=== PATIENT | female | born 1980 | race Caucasian/White ===

== ENCOUNTER 2016-07-23 02:49 | Emergency (ER) | payer OTHER ==
[~2016-07-23] VITALS: Ht 152.4 cm; Wt 59.0 kg
[2016-07-23 03:00] VITALS: BP 130/96; PULSE 85; RESP 16; TEMP 98.4; O2SAT 98
--- NOTE | 2016-07-23 03:20 | NUR ---
Placed in room 03 . Placed on air sampling and monitoring, blood pressure machine and pulse oximeter. To gown for exam. Side rails up. Care assumed.
--- NOTE | 2016-07-23 03:20 | NUR ---
Patient AAO x4, sitting in bed c/o rash to left hip that dull and "achey" with pain /. Patient stated, "I think I have shingles. I may have been exposed during the job." Patient denies N/V/D. No acute distress noted. Will continue to monitor patient.
--- NOTE | 2016-07-23 03:21 | NUR ---
Rash also present to back of patient's knees and lumbar area of the spine. aware.
--- NOTE | 2016-07-23 03:39 | NUR ---
ER at bedside examining patient.
[2016-07-23] MEDS ORDERED: valACYclovir HCL 500 MG TABLET PO ONE (03:45)
[2016-07-23] MEDS ORDERED: IBUPROFEN 600 MG TABLET PO ONE (03:45)
[2016-07-23] MEDS ORDERED: ACYCLOVIR 400 MG TABLET PO ONE (04:00)
[2016-07-23] MEDS ORDERED: ACYCLOVIR 400 MG TABLET ONE (04:08)
[2016-07-23 04:16] VITALS: BP 125/85; PULSE 82; RESP 16; TEMP 98.4; O2SAT 98
--- NOTE | 2016-07-23 04:16 | NUR ---
Patient given written and verbal discharge instructions and verbalizes understanding. ER MD discussed with patient the results and treatment provided. Patient in stable condition. ID arm band removed. Rx of acyclovir and ibuprofen given. Patient educated on pain management and to follow up with PMD. Pain Scale 0/10. Opportunity for questions provided and answered.
== END 2016-07-23 04:16 | disposition home or self-care (01) ==
LOC: SED 02:49 → EEVIPCON 02:49 → SED 04:16
DX: R23.8 Other skin changes (principal)
CPT/HCPCS: 99283

== ENCOUNTER 2016-07-30 13:38 | Emergency (ER) | payer OTHER ==
[~2016-07-30] VITALS: Ht 160 cm; Wt 59.0 kg
[2016-07-30 13:50] VITALS: BP 139/80; PULSE 87; RESP 15; TEMP 97; O2SAT 97
--- NOTE | 2016-07-30 13:50 | NUR ---
PLACED IN ROOM 2 REPORT GIVEN TO CHEO
--- NOTE | 2016-07-30 14:05 | NUR ---
DR IRVIN IN ROOM FOR EXAM
[2016-07-30 14:19] VITALS: PULSE 76; RESP 18
--- NOTE | 2016-07-30 14:21 | NUR ---
Patient given written and verbal discharge instructions and verbalizes understanding. ER MD discussed with patient the results and treatment provided. Given copies of tests performed in ER. Patient in stable condition. Patient educated on pain management and to follow up with PMD. Pain Scale [0]. Opportunity for questions provided and answered.
== END 2016-07-30 14:19 | disposition home or self-care (01) ==
LOC: SED 13:38
DX: Z00.8 Encounter for other general examination (principal)
CPT/HCPCS: 99281

== ENCOUNTER 2016-08-27 08:22 | Outpatient (CLI) | payer OTHER ==
[2016-08-27 09:30] LABS: BASOPHILS # (AUTO) 0.1 K/uL (0.0-0.2); BASOPHILS % (AUTO) 0.7 % (0.0-2.0); EOSINOPHILS # (AUTO) 0.1 K/uL (0.0-0.4); EOSINOPHILS % (AUTO) 1.3 % (0.0-4.0); HEMATOCRIT 36.7 % (36-48); HEMOGLOBIN 12.4 g/dL (12.0-16.0); LYMPHOCYTES # (AUTO) 3.1 K/uL (1.0-5.5); LYMPHOCYTES % (AUTO) 32.3 % (20.5-51.5); MEAN CORPUSCULAR HEMOGLOBIN 31 pg (27-31); MEAN CORPUSCULAR HGB CONC 34 % (32-36); MEAN CORPUSCULAR VOLUME 90 fL (79.0-98.0); MONOCYTES # (AUTO) 0.7 K/uL (0.0-1.0); MONOCYTES % (AUTO) 7.6 % (1.7-9.3); NEUTROPHILS # (AUTO) 5.8 K/uL (1.8-7.7); NEUTROPHILS % (AUTO) 58.1 % (40.0-70.0); PLATELET COUNT (AUTO) 331 K/uL (130-430); RED BLOOD CELL COUNT(AUTO) 4.07 MIL/uL (4.2-6.2); RED CELL DISTRIBUTION WIDTH 12.6 % (9.0-15.0); WHITE BLOOD COUNT (AUTO) 9.8 K/uL (4.8-10.8)
[2016-08-27 09:48] LABS: ALBUMIN 4.3 g/dL (3.4-4.8); CALCIUM 8.8 mg/dL (8.4-11.0); CREATININE 0.7 mg/dL (0.55-1.30); POTASSIUM 3.4 mmol/L (3.5-5.1); THYROID STIMULATING HORMONE 3.19 uIu/mL (0.34-4.82); TOTAL BILIRUBIN 0.5 mg/dL (0.0-1.0); TOTAL PROTEIN, SERUM 8.3 g/dL (6.4-8.3)
== END 2016-08-27 19:59 | disposition home or self-care (01) ==
LOC: SLB 08:22
PROVIDERS: ATTEND Internal Medicine
DX: N94.6 Dysmenorrhea, unspecified (principal)
CPT/HCPCS: 36415; 80053; 80061; 82306; 83540-TC; 84443-TC; 85025

== ENCOUNTER 2017-01-22 12:17 | Outpatient (CLI) | payer OTHER | END 2017-01-22 20:35 | disposition home or self-care (01) | LOC: SLB 12:17 | PROVIDERS: ATTEND Internal Medicine | DX: E55.9 Vitamin D deficiency, unspecified (principal) | CPT/HCPCS: 36415; 82306 ==